=== PATIENT | male | born 1935 | race Caucasian/White ===

== ENCOUNTER → 2017-07-16 | Outpatient (CLI) | payer OTHER ==
[~2017-07-16] MED LIST: ASPEC325 PO; ATOR-22 PO; BRIM0.15 OP; CLB200 PO; HYDR-5688 PO; LATA0.009 OPB; LOSA1TAB38 PO; MULTTAB58 PO; OXYSR10 PEG; SENN-65 PO; VERA240C2 PO
--- NOTE | 2017-07-16 11:31 | DIAGNOSTIC IMAGING REPORT ---
ABDOMINAL AORTIC ULTRASOUND CLINICAL HISTORY: Health Maintenance. Screening for abdominal aortic aneurysm. COMPARISON STUDY: No previous studies for comparison. FINDINGS: The caliber of the abdominal aorta and proximal bilateral common iliac arteries is normal. The proximal abdominal aorta measures 2.2 cm. The mid abdominal aorta measures 2.4 cm and the distal abdominal aorta measures 2.1 cm. There is mild to moderate atherosclerotic plaque. IMPRESSION: Normal caliber abdominal aorta. Electronically signed by: Willy Batista M.D. 07/16/2017 11:30 AM Dictated Date/Time: 07/16/2017 11:28 AM
== END | disposition home or self-care (01) ==
LOC: C.ULTRBC 09:38
PROVIDERS: ATTEND Internal Medicine Geriatric Medicine
DX: Z00.00 Encounter for general adult medical examination without abnormal findings (principal)

== ENCOUNTER 2024-10-19 17:06 | Observation (INO) ==
--- NOTE | 2024-10-19 19:32 | History & Physical Report ---
Date of Service October 19, 2024 Assessment & Plan (1) Ureterolithiasis: Plan: 9mm obstructing left with hydro at UPJ with associated UTI Keep NPO and Consult urology for stent insertion Discussed case with Dr Goldstein at time of admission (2) UTI (urinary tract infection): Plan: IV ceftriaxone given in the emergency room Follow-up urine culture at [facility] (3) Benign enlargement of prostate: Plan: Continue tamsulosin 0.4mg PO BID, monitor for urine retention (4) GERD (gastroesophageal reflux disease): Plan: Start IV famotidine (5) Hydronephrosis with obstructing calculus: Plan HTN - continue losartan and verapamil Hyperlipemia - continue rosuvastatin VTE Prophylaxis - low risk Diet - NPO pending stent placement Disposition - admit to med/surg Admission and Anticipated Discharge Date Admission Date: October 19, 2024 History of Present Illness Chief Complaint: Left back pain Primary Care Provider: Katey Nguyễn DO Frank Egan is an 89 year old male who presents as a direct admission from [facility] with left back pain. He reports 2 to 3 days of left- sided back pain which was resolved with Toradol given in the emergency room. On arrival to the ER severity 06/16, currently he is pain-free. He also reports blood in his urine 2 weeks ago which cleared up after 2 to 3 days. He last ate and drank around 9 AM. No prior heart attacks or strokes. No nausea, vomiting, diarrhea, dysuria, urinary frequency, current change in color or smell of urine. No fever or chills. He also notes indigestion and nausea for the last 2 days. No vomiting or diarrhea. CT abdomen pelvis in the emergency room showed a 9 mm obstructing stone at UPJ causing hydronephrosis. His case was discussed with the hospitalist and urology at [facility] and he was accepted for transfer due to no urology coverage at outside facility. Allergies Allergy/AdvReac Type Severity Reaction Status Date / Time Iodinated Contrast Media Allergy Unknown PT PASSED Verified 01/30/24 10:59 OUT Percocet TABS Allergy Uncoded 01/30/24 10:59 Home Medications Medication Instructions Recorded Confirmed Type cholecalciferol (vitamin D3) 25 1,000 units PO DAILY #90 caps 04/29/19 10/19/24 Rx mcg (1,000 unit) capsule latanoprost 0.005 % eye drops 1 drops ophthalmic (eye) QPM #2.5 04/29/19 10/19/24 Rx mL dorzolamide 22.3 mg-timolol 6.8 1 drp OPB BID 07/13/21 10/19/24 History mg/mL eye drops losartan 100 mg tablet 100 mg PO DAILY #90 tabs 07/03/24 10/19/24 Rx tamsulosin 0.4 mg capsule 0.4 mg PO BID #60 caps 08/11/24 10/19/24 Rx rosuvastatin 10 mg tablet (Crestor) 10 mg PO HS 10/19/24 10/19/24 History verapamil 120 mg 24 hr 120 mg PO HS 10/19/24 10/19/24 History capsule,extended release Past Med/Surg History Problem List UTI (urinary tract infection) Hydronephrosis with obstructing calculus Ureterolithiasis Chronic rhinitis GERD (gastroesophageal reflux disease) History of SCC (squamous cell carcinoma) of skin History of basal cell carcinoma Hearing loss Actinic keratosis Cluster headache (Chronic) Pulmonary emphysema Osteopenia (Acute) Hypertension Glaucoma (Acute) Dyslipidemia Chronic osteoarthritis (Acute) Benign enlargement of prostate Aortic calcification (Acute) Medical History Abscess of pubic region Surgical History H/O cataract extraction (2015) bl eyes History of total knee arthroplasty (2014) Left, Dr. Roche History of shoulder surgery History of knee surgery knee repair History of hernia repair Family History Father , age 71 Chronic kidney disease Patient's father is Sister Lung cancer Other Diabetes Denies family history of Ovarian cancer Prostate cancer Myocardial infarction Breast cancer Colorectal cancer Social History Smoking Status: Current every day smoker Tobacco Type: Cigarettes Age Started Using Tobacco: 19; packs per day: 0.75; Second Hand Exposure: No; Do You Dip or Chew Tobacco: No; Hx Alcohol Use: Yes Alcohol Intake Frequency: 2-4 x/Month Hx Substance Use: No Preferred Language: Lao Communication Ability: Effective Visual Impairment: Limited Hearing Ability: Use of Hearing Aid Fish Dressing Machine Feeder Required: No Beliefs That Will Affect Care: None marital status: Current Living Situation: Spouse current occupational status: retired How many Children do You have: 2 Other Information That Helps Us Care for You: No Feels Safe at Home: Yes Safety Concerns: Feels Safe At This Time Childhood Exposure to Second-Hand Smoke: Yes Diet: regular Diet Comment: regular caffeine: Yes (coffee) during the past year weight has: remained stable Dental Care, Regularly: No Physical Activity Frequency: Daily Seatbelt Use: always Sunscreen Use: No Assistive Devices: Glasses and Hearing Aid - Bilateral Review of Systems Review of Systems: All systems reviewed & are unremarkable except as noted in HPI & below Physical Exam Constitutional: WD/WN, vitals as above Respiratory: normal respiratory effort, lungs clear to auscultation Cardiovascular: RRR, no murmur, no edema Gastrointestinal (Abdomen): normal bowel sounds, soft, nontender, no hepatosplenomegaly Neurologic: moves all extremities and awake; not confused Psychiatric: A+Ox3, euthymic affect Genitourinary: + CVA tenderness (Left) Results & Data Results & Data Vital Signs (Past 12 Hours) Vital Signs Temp Pulse Resp BP Pulse Ox O2 Del Method 10/19/24 18:57 36.6 C 62 18 149/76 H 97 Room Air Laboratory Results [facility] emergency room October 19, 2024 14:22 Glucose 95 BUN 18 Creatinine 1.17 Total protein 6.5 Albumin 4 Globulin 2.5 A/G ratio 1.6 Calcium 9.1 Total bili 1.2 Sodium 140 Potassium 3.7 Chloride 106 CO2 28 AGAP 9.7 ALP 83 AST 31 ALT 13 Lipase 25 Lactate 2.1 WBC 12.08 Hemoglobin 14.8 MCV 97.6 Platelets 147 Absolute neutrophil count 9.7 Urinalysis Color maryjane Clarity cloudy Glucose negative Bili negative Ketones negative Specific gravity 1.020 Blood 3+ pH 6.0 Protein 1+ Urobilinogen 1 Nitrites negative Leukocyte esterase 2+ RBC greater than 50 WBC 15-20 Epithelial 0-6 Bacteria trace Fine granular casts 0-2 RBC casts 0-[address] abdomen pelvis without IV contrast 10/19/2024 14:08 Impression: 1. Left hydronephrosis due to a 9 mm calculus obstructing the left UPJ 2. Small right renal calculus and multiple bladder calculi 3. Small hepatic and right renal cyst 4. Diverticulosis without evidence of diverticulitis 5. Enlarged prostate. Correlation with PSA levels may be useful CXR Impression: 1. No acute cardiopulmonary abnormality Medications Administered ER medications given: Ceftriaxone 2 g IV Normal saline 1848 mL bolus Toradol 15 mg IV Code Status & VTE Plan Code Status Full VTE Prophylaxis Plan VTE Prophylaxis will be ordered: Yes PG Care Time/CCT Total # of Minutes Spent Total Time Spent with Patient: Total time spent is greater than 50% in coordination of care (as documented) at patient's floor/unit and/or counseling patient: Coding Level of Care Code 46168 INT INP/OBS CARE 375MIN Diagnoses Ureterolithiasis N20.1 UTI (urinary tract infection) N39.0 Benign enlargement of prostate N40.0 GERD (gastroesophageal reflux disease) K21.9 Hydronephrosis with obstructing calculus N13.2
[2024-10-19] MEDS ORDERED: ONDANSETRON INJ 2 MG/ML 2 ML VIAL ONE (19:56)
[2024-10-19] MEDS ORDERED: PROPOFOL IV EMULSION 10 MG/ML 20 ML VIAL IV ONE (19:56)
[2024-10-19] MEDS ORDERED: LIDOCAINE 2% 2 ML VIAL/AMP(20MG/ML) INFIL ONE (19:56)
[2024-10-19] MEDS ORDERED: fentaNYL citrate PF 100 MCG/2 ML VIAL ONE (19:56)
--- NOTE | 2024-10-19 20:03 | Urology Consultation ---
Date of Consultation October 19, 2024 Assessment & Plan (1) Hydronephrosis with obstructing calculus: (2) Ureterolithiasis: (3) UTI (urinary tract infection): (4) History of SCC (squamous cell carcinoma) of skin: (5) History of basal cell carcinoma: (6) Chronic osteoarthritis: (7) Benign enlargement of prostate: (8) Aortic calcification: (9) Osteopenia: (10) Pulmonary emphysema: Plan New patient with obstructing stone. Large obstructing stone in the left UPJ causing considerable hydronephrosis and perinephric stranding. Patient independently assessed, examined, interviewed, and evaluated. Patient's vitals and labs were all reviewed. Pertinent values in the HPI and plan section. Blood pressure 149/76. Pulse 62. Respirations 18. Temp 36.6. Oxygen saturation 97% on room air. Imaging was reviewed interpreted by myself. Patient with large obstructing stone in the UPJ/proximal ureter causing obstructive issues on the left side with hydronephrosis and perinephric stranding. Read was completed at [facility] and was not available at time of assessment. Vitals were reviewed. White count was 12.08. Creatinine 1.17. Lactic acid was mildly elevated 2.1. Discussed findings extensively with patient and family. Reviewed with transfer team as well as consulting physician. Patient's complicated medical and surgical history was reviewed and summarized above. Patient's surgical, medical, social, and family history were all reviewed with pertinent values as above. Patient has never had stone before. Discussed patient's current diagnosis as well as concerns and issues. Reviewed different options moving forward. Discussed potential risks and benefits as well as possible options and concerns. Reviewed potential surgical options and interventions. Discussed potential issues and concerns related to intervention. Risk and benefits were discussed extensively with patient and any available family. Discussed potential risks related to anesthesia. Discussed risks of bleeding infection and injury. Suspicion for infection with possible development of ascending infection due to large stone and obstruction. Discussed possible risks and development of sepsis with large obstructing stone and infection. Cultures are pending. [facility] Patient had been given a dose of Rocephin at the [facility] Discussed options for conservative measure and maximum expulsion medical therapy and symptom controlled. Discussed ESWL. Discussed Ureteroscopy with extraction and/or laser lithotripsy. Risks and benefits were discussed. Stone free rates were also discussed as well as possibility of multiple procedures. Ureteral stents were discussed as well as post-operative issues and pain management. All questions were answered. Risks and benefits discussed at length for procedure. These include bleeding, infection, injury to surrounding tissues or organs, and risks associated with anesthesia. Patient states understanding and agrees to proceed. Will sign consent and proceed. Plan for cystoscopy with possible left stent placement. History of Present Illness Attending Physician: Naldo Baker MD History of Present Illness New consultation for patient with stone, discomfort, obstruction, and ill feelings. Patient presented to [facility]. Patient developed sudden onset of pain into flank going down and radiating into groin and back in waves comes and goes. Can be severe at times. Found to have positive urine concerning for possible infection. Had undergone CT examination at [facility] found to have large obstructing stone in the UPJ causing hydronephrosis and perinephric stranding. Discussed and reviewed patient's family history for any history of stone disease. Also, discussed patient's medical surgery history especially related to any history of urinary issues or stone disease. Patient was admitted and is undergoing observation. Had been given a dose of Rocephin at [facility]. Was transferred for possible surgical management. Allergies Allergy/AdvReac Type Severity Reaction Status Date / Time Iodinated Contrast Media Allergy Unknown PT PASSED Verified 01/30/24 10:59 OUT Percocet TABS Allergy Uncoded 01/30/24 10:59 Home Medications Medication Instructions Recorded Confirmed Type cholecalciferol (vitamin D3) 25 1,000 units PO DAILY #90 caps 04/29/19 10/19/24 Rx mcg (1,000 unit) capsule latanoprost 0.005 % eye drops 1 drops ophthalmic (eye) QPM #2.5 04/29/19 10/19/24 Rx mL dorzolamide 22.3 mg-timolol 6.8 1 drp OPB BID 07/13/21 10/19/24 History mg/mL eye drops losartan 100 mg tablet 100 mg PO DAILY #90 tabs 07/03/24 10/19/24 Rx tamsulosin 0.4 mg capsule 0.4 mg PO BID #60 caps 08/11/24 10/19/24 Rx rosuvastatin 10 mg tablet (Crestor) 10 mg PO HS 01/13/25 01/13/25 History verapamil 120 mg 24 hr 120 mg PO HS 10/19/24 10/19/24 History capsule,extended release Patient History Medical History Abscess of pubic region Surgical History H/O cataract extraction (2016) bl eyes History of total knee arthroplasty (2014) Left, Dr. Roche History of shoulder surgery History of knee surgery knee repair History of hernia repair Family History Father , age 71 Chronic kidney disease Patient's father is Sister Lung cancer Other Diabetes Denies family history of Ovarian cancer Prostate cancer Myocardial infarction Breast cancer Colorectal cancer Social History Smoking Status: Current every day smoker Tobacco Type: Cigarettes Age Started Using Tobacco: 19; packs per day: 0.75; Second Hand Exposure: No; Do You Dip or Chew Tobacco: No; Hx Alcohol Use: Yes Alcohol Intake Frequency: 2-4 x/Month Hx Substance Use: No Preferred Language: Vietnamese Communication Ability: Effective Visual Impairment: Limited Hearing Ability: Use of Hearing Aid Sap Pp Consultant Required: No Beliefs That Will Affect Care: None marital status: Current Living Situation: Spouse current occupational status: retired How many Children do You have: 2 Feels Safe at Home: Yes Childhood Exposure to Second-Hand Smoke: Yes Diet: regular Diet Comment: regular caffeine: Yes (coffee) during the past year weight has: remained stable Dental Care, Regularly: No Physical Activity Frequency: Daily Seatbelt Use: always Sunscreen Use: No Review of Systems Review of Systems: All systems reviewed & are unremarkable except as noted in HPI & below Physical Exam Physical Exam: General: Alert and oriented x 3 in no acute distress. Advanced age HEENT: Normocephalic Atraumatic. Inspection normal. Cranial Nerves 2-12 Grossly intact. Nares are clear. Neck is supple. Normal inspection of face. Normal inspection of neck. Neurologic: No deficits on inspection. Baseline for motor function and sensory. Psychologic: Normal affect. Respiratory: Nonlabored. No use of accessory muscles. No tachypnea or dyspnea. Cardiovascular: No tachycardia Skin: [place] and Dry. No rashes or visible lesions. Extremities: Moving without issues. No motor deficits on inspection Lymphatics: No edema Abdomen: Soft Non-distended. No rebound or guarding. Results & Data Vital Signs (Past 12 Hours) Vital Signs Temp Pulse Resp BP Pulse Ox O2 Del Method 10/19/24 18:57 36.6 C 62 18 149/76 H 97 Room Air PG Care Time/CCT Total # of Minutes Spent Total Time Spent with Patient: Total time spent is greater than 50% in coordination of care (as documented) at patient's floor/unit and/or counseling patient: Coding Level of Care Code 47259 INT INP/OBS CARE 3/75MIN Diagnoses Hydronephrosis with obstructing calculus N13.2 Ureterolithiasis N20.1 UTI (urinary tract infection) N39.0 History of SCC (squamous cell carcinoma) of skin Z85.828 History of basal cell carcinoma Z85.828 Chronic osteoarthritis M19.90 Benign enlargement of prostate N40.0 Aortic calcification I70.0 Osteopenia M85.80 Pulmonary emphysema J43.9
--- NOTE | 2024-10-19 20:08 | Anesthesiology Consultation ---
Date of Service October 19, 2024 Assessment & Plan Chart Review Chart Review: Acceptable Risk for Surgery Consults Requested none ASA [id number] Proposed Anesthesia Anesthesia Type: MAC History Surgery Operation Date: 10/19/24 19:25 Proposed Procedures p Cysto left Ureteral Stent Insertion - Rodrigo Goldstein DO Allergies Allergy/AdvReac Type Severity Reaction Status Date / Time Iodinated Contrast Media Allergy Unknown PT PASSED Verified 01/30/24 10:59 OUT Percocet TABS Allergy Uncoded 01/30/24 10:59 Medications Home Medications Medication Instructions Recorded Confirmed Last Taken cholecalciferol (vitamin D3) 25 1,000 units PO DAILY #90 caps 04/29/19 10/19/24 Unknown mcg (1,000 unit) capsule latanoprost 0.005 % eye drops 1 drops ophthalmic (eye) QPM #2.5 04/29/19 10/19/24 1 Day Ago mL ~10/18/24 dorzolamide 22.3 mg-timolol 6.8 1 drp OPB BID 07/13/21 10/19/24 1 Day Ago mg/mL eye drops ~10/18/24 losartan 100 mg tablet 100 mg PO DAILY #90 tabs 07/03/24 10/19/24 10/19/24 tamsulosin 0.4 mg capsule 0.4 mg PO BID #60 caps 08/11/24 10/19/24 1 Day Ago ~10/18/24 rosuvastatin 10 mg tablet (Crestor) 10 mg PO HS 10/19/24 10/19/24 1 Day Ago ~10/18/24 verapamil 120 mg 24 hr 120 mg PO HS 10/19/24 10/19/24 1 Day Ago capsule,extended release ~10/18/24 Past Medical History Medical History Abscess of pubic region Past Family History Family History Father , age 71 Chronic kidney disease Patient's father is Sister Lung cancer Other Diabetes Denies family history of Ovarian cancer Prostate cancer Myocardial infarction Breast cancer Colorectal cancer Past Surgical History Surgical History H/O cataract extraction (2015) bl eyes History of total knee arthroplasty (2014) Left, Dr. Roche History of shoulder surgery History of knee surgery knee repair History of hernia repair Social History Smoking Status: Current every day smoker tobacco type: cigarettes Do You Dip or Chew Tobacco: No Hx Alcohol Use: Yes Hx Substance Use: No Physical Exam Vital Signs Last Vital Signs Temp 36.6 C 10/19/24 18:57 Pulse 62 10/19/24 18:57 Resp 18 10/19/24 18:57 BP 149/76 H 10/19/24 18:57 Pulse Ox 97 10/19/24 18:57 O2 Del Method Room Air 10/19/24 18:57
[2024-10-19] MEDS: CIPROFLOXACIN 400MG / 200ML D5W IV ONE ×2 (20:23→20:32)
[2024-10-19] MEDS: DIATRIZOATE MEGLUMINE 30% 100ML VIAL INSTIL ONE (20:49)
--- NOTE | 2024-10-19 20:53 | Operative Report ---
PG Post Operative Report Pre & Post Diagnosis Operation Date: 10/19/24 19:25 Pre-Op Diagnosis: Hydronephrosis with obstructing calculus, Ureterolithiasis, Urinary Tract Infection Post-Op Diagnosis: Hydronephrosis with obstructing calculus, Ureterolithiasis, Urinary Tract In fection I identified the patient and participated in the time-out.: Yes Procedure Operation Date: 10/19/24 19:25 Actual Procedures Cystoscopy with Left Retrograde Pyelogram, aspiration of urine left kidney, and Left Ureteral Stent Insertion Extraction of Bladder Stones - Rodrigo Goldstein DO Surgeon Rodrigo Goldstein, II, DO Carpet Tile Layer None Estimated Blood Loss 1 Findings Consistent with Post-Op Diagnosis Stent placed in good position. Large obstructing stone of the UPJ Dark urine aspirated from left Renal pelvis. Innumerable small bladder stones less than 1 cm in size. Very large median lobe with large prostatic varicosity and significant prostate enlargement Specimens Urine Left Kidney Bladder stones Drains 6 Fr x 26 cm stent left Anesthesia Type MAC Complications none Disposition Disposition: Recovery Room Indications Patient with obstruction. Risks and benefits discussed at length. Description of Procedure Patient was consented and brought back to the operating room. Patient was placed under anesthesia in the supine position and moved to the dorsal lithotomy position. Patient was prepped and draped in the regular sterile fashion. A time out was completed. A 30degree Cystoscope was placed into the bladder and the entire bladder was examined. The UO's were identified. The prostate was found to be severely enlarged with large varicosities. There were innumerable bladder stones in the base of the bladder. The stones were all less than 1 cm in size. The stones were able to be irrigated and cleared. A large amount of stones were collected. A sample was sent for analysis. The UO was cannulized with a catheter which was advanced to the renal pelvis. Urine was aspirated from the renal pelvis after the 5 Austrian open-ended catheter bypassed the large obstructing stone that was seen clearly on the fluoroscopy. The urine was sent for culture. The catheter was then positioned at the UPJ and a retrograde pyelogram was completed. A wire was then placed. With the wire in place, a 6 Fr Double J stent was placed. It was confirmed with fluoroscopy. With the stent in place, the bladder was emptied. A minor amount of bleeding was noted coming from the large varicosities of the prostate with the large median lobe. The scope was removed. The patient was cleaned, aroused from anesthesia, and transferred to the pacu in stable condition having tolerated the procedure well with no complications. I was present and participated in all aspects of the procedure. The patient will be monitored in the PACU until transferred. Plan to monitor overnight. Will need to be set up for treatment of large UPJ stone after adequate antibiotics I attest to the content of the Intraoperative Record and any orders documented therein. Any exceptions are noted below.
--- NOTE | 2024-10-19 21:21 | Anesthesiology Progress Note ---
Date of Service October 19, 2024 Anesthesia Post Procedure Vital Signs Vital Signs: Temp Pulse Pulse Resp BP Pulse Ox O2 Del Method 10/19/24 21:15 36.4 C L 55 L 20 137/73 95 Room Air 10/19/24 21:05 53 L 14 101/46 L 94 Room Air 10/19/24 20:56 36.5 C 56 L 12 120/62 98 Room Air 10/19/24 19:20 Room Air 10/19/24 18:57 36.6 C 62 18 149/76 H 97 Room Air Transfer of Care Handoff Completed per policy Notes Mental Status: alert / awake / arousable and participated in evaluation Patient Amnestic to Procedure: Yes Nausea / Vomiting: adequately controlled Pain: adequately controlled Airway Patency, RR, SpO2: stable & adequate BP & HR: stable & adequate Hydration State: stable & adequate Anesthetic Complications: no major complications apparent
[2024-10-19] MEDS: ROSUVASTATIN CALCIUM 10 MG TAB PO SCH (21:37)
[2024-10-19] MEDS: TAMSULOSIN HCL 0.4 MG CAP PO SCH (21:37)
[2024-10-19] MEDS: LATANOPROST 0.005% OP SOLN 2.5 ML BTL OP SCH (21:37)
[2024-10-19] MEDS: VERAPAMIL HCL 120 MG TABCR PO SCH (21:37)
[2024-10-19] MEDS: DORZOLAMIDE/TIMOLOL 22.3/6.8MG/ML 10 ML BTL OPB SCH (21:38)
[2024-10-19] MEDS: FAMOTIDINE 20MG IV PUSH 20 MG/5 ML SYR IV STA (22:07)
[2024-10-20 07:11] VITALS: BP 166/70; PULSE 72; RESP 16; TEMP 98.1; O2SAT 91
--- NOTE | 2024-10-20 07:14 | Fluoroscopy Report ---
FL retrograde includes kub CLINICAL HISTORY: CYSTO, RETRO, STENTleft-sided cystourethrogram was done placement COMPARISON STUDY: None FLUOROSCOPY TIME: 67.2 seconds FLUOROSCOPY IMAGES: 3 EXPOSURE DOSE: 9.5 mGy FINDINGS: Status post placement of left ureteral stent which appears to be in satisfactory positionin g. Left-sided hydronephrosis with calyceal blunting noted. IMPRESSION: Fluoroscopic assistance as above. ACT 112: Negative or not required by law. Electronically signed by: Cory Dennis M.D. 10/20/2024 7:12 AM
[2024-10-20] MEDS: LOSARTAN POTASSIUM 50 MG TAB PO SCH (07:32)
[2024-10-20 08:01] LABS: Basophils # (auto) 0.03 K/uL (0.00-0.20); Basophils % (auto) 0.4 %; Eosinophils # (auto) 0.05 K/uL (0.00-0.50); Eosinophils % (auto) 0.6 %; Hematocrit (blood only) 37.8 % (42.0-52.0); Hemoglobin 12.8 g/dl (14.0-18.0); Immature Granulocytes # (auto) 0.03 K/uL (0.01-0.20); Immature Granulocytes % (auto) 0.4 %; Lymphocytes # (auto) 1.12 K/uL (1.20-3.40); Lymphocytes % (auto) 13.8 %; Mean Corpuscular Hemoglobin 32.9 pg (25.0-34.0); Mean Corpuscular Hgb Conc 33.9 g/dL (32.0-36.0); Mean Corpuscular Volume 97.2 fL (80.0-100.0); Mean Platelet Volume 10.4 fL (9.4-12.4); Monocytes % (auto) 9.8 %; Platelet Count 116 K/uL (130-400); RDW Coefficient of Variation 14.1 % (11.5-14.5); RDW Standard Deviation 50.7 fL (36.4-46.3); Red Blood Count 3.89 M/uL (4.70-6.10); White Blood Count 8.13 K/ul (4.8-10.8)
[2024-10-20 08:12] LABS: BUN Creatinine Ratio 28.1 (10-20); Calcium 8.4 mg/dl (8.6-10.3); Potassium 4.2 mmol/L (3.5-5.1)
--- NOTE | 2024-10-20 09:17 | Urology Progress Note ---
Date of Service October 20, 2024 Assessment & Plan (1) Hydronephrosis with obstructing calculus: Plan: 89-year-old male transferred from [facility] for evaluation of an obstructing 9 mm left proximal stone and concern for UTI. - Pt POD#1 s/p Cystoscopy with Left Retrograde Pyelogram, aspiration of urine left kidney, and Left Ureteral Stent Insertion, Extraction of Bladder Stones - Afebrile, hemodynamically stable - Lab work reviewed - creatinine 0.96, WBC 8.13 - Urine culture obtained at outside facility - Kidney aspirate urine culture pending - Continue broad-spectrum antibiotics, follow culture and narrow per sensitivity data when available - Tolerating left ureteral stent with minimal bother - Okay to d/c from perspective when medically stable - Recommend d/c with course of appropriate PO antibiotics, Tamsulosin, prn Pyridium and prn pain medication for stent management - Expected clinical course reviewed, all questions answered - Will arrange outpatient follow-up with our service to set up definitive stone treatment - will sign off, please contact our service with any additional questions or concerns (2) UTI (urinary tract infection): Admission and Anticipated Discharge Date Admission Date: October 19, 2024 Subjective Patient seen and examined at bedside this morning. He is awake and ambulating from the bathroom. No acute issues overnight. He is voiding spontaneously. Notes hematuria postprocedure. Denies nausea, vomiting, fever or chills. Review of Systems Constitutional: as per Subjective / HPI Gastrointestinal: as per Subjective / HPI Genitourinary: + as per Subjective / HPI Physical Exam Constitutional: no acute distress Respiratory: no respiratory distress and no labored breathing Gastrointestinal (Abdomen): Inspection/Auscultation: abdomen normal to inspection Musculoskeletal: Head/Neck/Chest: normocephalic Neurologic: moves all extremities and awake Psychiatric: Orientation: alert and oriented x 3 Results & Data Vital Signs (Past 12 Hours) Vital Signs Temp Pulse Resp BP Pulse Ox O2 Del Method 10/20/24 07:10 36.7 C 72 16 166/70 H 91 Room Air 10/20/24 04:56 36.6 C 56 L 18 132/78 94 Room Air 10/20/24 00:48 36.4 C L 56 L 18 123/74 97 Room Air 10/19/24 23:48 36.5 C 61 16 129/76 96 Room Air 10/19/24 22:30 36.5 C 58 L 18 154/73 H 92 Room Air 10/19/24 22:05 36.5 C 57 L 16 144/68 H 93 Room Air 10/19/24 21:34 36.4 C L 58 L 16 136/78 93 Room Air PG Care Time/CCT Total # of Minutes Spent Total Time Spent with Patient: Total time spent is greater than 50% in coordination of care (as documented) at patient's floor/unit and/or counseling patient: Coding Level of Care Code 85813 SUB INP/OBS CARE 10/31MIN Diagnoses Hydronephrosis with obstructing calculus N13.2 UTI (urinary tract infection) N39.0
[2024-10-20] MEDS: cefTRIAXone SODIUM 2,000 MG/50 ML BAG IV SCH (13:38)
--- NOTE | 2024-10-20 15:03 | Communication Note ---
Date of Service: October 20, 2024 By CMS guidelines, a determination that the admission or continued stay is not medically necessary has been made by a member of the UR committee and john ferraro for this hospital stay, therefore a Code 44 will be completed and the Inpatient admission will be changed to outpatient.
--- NOTE | 2024-10-20 15:06 | Communication Note ---
Date of Service: October 20, 2024 By CMS guidelines, a determination that the admission or continued stay is not medically necessary has been made by a member of the UR committee and a ph ysician for this hospital stay, therefore a Code 44 will be completed and the Inpatient admission will be changed to outpatient.
--- NOTE | 2024-10-20 15:19 | Discharge Summary ---
Discharge Summary Date of Service October 20, 2024 Principal Dx & Hospital Course #1 = Principal Diagnosis (1) Ureterolithiasis: 9mm obstructing left with hydro at [facility] with associated UTI. underwent stent placement with Dr. Goldstein on 10/19. Tolerating stent without issue Urine culture at [facility] is negative at 24 hours, urine from kidney during stent procedure had a negative Gram stain with no growth to date. Discussed with patient and sonBunny, patient has received 2 doses of ceftriaxone and will be discharged on a course of cefpodoxime. I will review the urine culture tomorrow 10/21 at [facility] and if antibiotics need to be changed I will notify patient and his son. Patient and son are both aware that there is a slight but unlikely chance that he would need IV antibiotics in which they understand that he would probably have to return to the hospital. continue Flomax. Tylenol for pain. As needed Pyridium prescribed. (2) UTI (urinary tract infection): Cefpodoxime at discharge as above. (3) Benign enlargement of prostate: Continue tamsulosin 0.4mg PO BID (4) GERD (gastroesophageal reflux disease): (5) Hydronephrosis with obstructing calculus: Plan Dispo: Discharge to home, will need urology follow-up for stent treatment SonBunny updated by phone Notes For Next Care Provider urine culture from [facility] still pending however no growth at 24 hours platelets low at 116, no prior labs in system for comparison. If no prior data could consider repeat. No active bleeding currently Medication Changes From Visit Pyridium as needed Cefpodoxime twice daily x 8 days Admission HPI Per Admitting Provider Frank Egan is an 89 year old male who presents as a direct admission from [facility] with left back pain. He reports 2 to 3 days of left- sided back pain which was resolved with Toradol given in the emergency room. On arrival to the ER severity 06/16, currently he is pain-free. He also reports blood in his urine 2 weeks ago which cleared up after 2 to 3 days. He last ate and drank around 9 AM. No prior heart attacks or strokes. No nausea, vomiting, diarrhea, dysuria, urinary frequency, current change in color or smell of urine. No fever or chills. He also notes indigestion and nausea for the last 2 days. No vomiting or diarrhea. CT abdomen pelvis in the emergency room showed a 9 mm obstructing stone at [facility] causing hydronephrosis. His case was discussed with the hospitalist and urology at [facility] and he was accepted for transfer due to no urology coverage at outside facility. Discharge Exam General: NAD, VS as above, ambulates independently in the room, very pleasant and appears well Resp: normal respiratory effort, lungs clear to auscultation CV: RRR, no murmur, Abd: normal bowel sounds, non tender, no hepatosplenomegaly Extremities: Moves all extremities, no edema Neuro: A&O x3, Discharge Plan Discharge Items Patient Disposition: Home - Self-Care Reason For Visit: OBSTRUCTIVE URETEROLITHIASIS/UTI Discharge Diagnosis: Kidney stone Activity: Resume your previous activity Driving/Machine Use: No limitations Weightbearing: Full weightbearing Non-emergency contact: Primary Care Provider and Urologist Call non-emergency contact if: you have any medication questions, your pain is not controlled, your pain is worsening and your temperature is above 101 Follow-up/Referrals: Katey Nguyễn DO [Primary Care Provider] - 10/29/24 9:20 am Rodrigo Goldstein DO [Physician] - (follow up for stone treatment ) Diet: Heart Healthy Addtl Attending Provider Instructions: Mr. Egan, You were hospitalized after flank pain which was found to be from a kidney stone causing a pack up of urine in your kidney. You underwent stent placement with Dr. Goldstein in the OR on 10/20. The stent helps the urine to continue to pass through but does not help the stone. You will need to follow up with the urology office for stone treatment. Their number is listed above if you do not hear from them by Saturday please give their office a call. There were also concerns for infection based on the appearance of your urine. Thankfully your cultures at [facility] and within our system are so far negative. You will be discharged on oral cefpodoxime. Take this twice a day with food, first dose AM 10/21. There is a chance that this antibiotic will have to be changed, if so I will give you a call tomorrow. Recommendations: - take full course of antibiotics - continue taking Flomax (tamsulosin as prescribed). - Pyridium prescribed as needed for pain with urination - take Tylenol for any continued back pain - urology follow up for stone treatment Activity: You can do normal everyday activities as your body allows. Take rest breaks if you feel tired. Do not overexert. Stop activity if you have pain, shortness of breath or feel dizzy. Follow-up appointments: Make an appointment with your primary care physician within one week of d ischarge. A copy of this summary will be sent to them. Every time you see your primary care physician, or any other doctor, bring your medication list, and a list of questions. CONTACT YOUR PRIMARY CARE PROVIDER if you experience any of the following: Shortness of breath or difficulty breathing Fevers or chills Feeling tired with normal activity or experiencing dizziness or fainting Difficulty following your treatment plan, or difficulty taking medications Call urology if you experience: - difficulty or inability to urinate - worsening flank pain not controlled with medication CALL 911 OR GO TO THE EMERGENCY DEPARTMENT if you experience any of the following: Severe abdominal pain or nausea/vomiting Severe chest pain, or chest pain that radiates (moves) to your jaw or arm Sudden, severe shortness of breath or difficulty breathing Thank you for allowing us to participate in your care. Betzy Bee PA-C Pending Studies at Discharge: Yes (kidney urine specimen ) Stand-Alone Forms: My [facility] [place], Smoking Cessation Medications and DC Order Prescriptions: New cefpodoxime 200 mg tablet 200 mg PO BID Qty: 16 0RF Rx Instructions: must administer with a meal/food phenazopyridine [Pyridium] 100 mg tablet 100 mg PO TID PRN (Reason: pain with urination ) Qty: 6 0RF Continued losartan 100 mg tablet 100 mg PO DAILY Qty: 90 1RF tamsulosin 0.4 mg capsule 0.4 mg PO BID Qty: 60 5RF cholecalciferol (vitamin D3) 1,000 unit capsule 1,000 units PO DAILY Qty: 90 0RF latanoprost 0.005 % drops 1 drops OP QPM Qty: 2.5 2RF dorzolamide-timolol 22.3-6.8 mg/mL drops 1 drp OPB BID rosuvastatin [Crestor] 10 mg tablet 10 mg PO HS verapamil 120 mg capsule,ext rel. pellets 24 hr 120 mg PO HS Discharge Orders: Discharge Order (Routine); Ordered 10/20/24 Ordered By: Betzy Bee Admission Data Admit Date/Time: 10/19/24 18:58 Attending Provider: Cassandra Singh Admit Provider: Naldo Baker Primary Care Provider: Katey Nguyễn Other Providers: Rodrigo Goldstein Other Interventions: Discharge Summary Assessment (RN) Last Done: 10/20/24 15:10 Hospital Stay Data Consultations 10/19/24 18:59 Consult Urology Stat Procedures Performed Operation Date: 10/19/24 19:25 Actual Procedures p Cystoscopy, Retrograde Pyelogram, Left Ureteral Stent Insertion, Extraction of Bladder Stones(Left) - Rodrigo Goldstein, Diagnostic Imagining Performed Retrograde Pyelogram 10/19/24 19:35 FL retrograde includes kub CLINICAL HISTORY: CYSTO, RETRO, STENTleft-sided cystourethrogram was done placement COMPARISON STUDY: None FLUOROSCOPY TIME: 67.2 seconds FLUOROSCOPY IMAGES: 3 EXPOSURE DOSE: 9.5 mGy FINDINGS: Status post placement of left ureteral stent which appears to be in satisfactory positioning. Left-sided hydronephrosis with calyceal blunting noted. IMPRESSION: Fluoroscopic assistance as above. ACT 112: Negative or not required by law. Electronically signed by: Cory Dennis M.D. 10/20/2024 7:12 AM Pending Results Patient Have Any Pending Studies at Discharge: Yes (kidney urine specimen ) Discharge Instructions Given to Patient (Per Discharging Provider) Mr. Egan, You were hospitalized after flank pain which was found to be from a kidney stone causing a pack up of urine in your kidney. You underwent stent placement with Dr. Goldstein in the OR on 10/20. The stent helps the urine to continue to pass through but does not help the stone. You will need to follow up with the urology office for stone treatment. Their number is listed above if you do not hear from them by Saturday please give their office a call. There were also concerns for infection based on the appearance of your urine. Thankfully your cultures at [facility] and within our system are so far negative. You will be discharged on oral cefpodoxime. Take this twice a day with food, first dose AM 10/21. There is a chance that this antibiotic will have to be changed, if so I will give you a call tomorrow. Recommendations: - take full course of antibiotics - continue taking Flomax (tamsulosin as prescribed). - Pyridium prescribed as needed for pain with urination - take Tylenol for any continued back pain - urology follow up for stone treatment Activity: You can do normal everyday activities as your body allows. Take rest breaks if you feel tired. Do not overexert. Stop activity if you have pain, shortness of breath or feel dizzy. Follow-up appointments: Make an appointment with your primary care physician within one week of discharge. A copy of this summary will be sent to them. Every time you see your primary care physician, or any other doctor, bring your medication list, and a list of questions. CONTACT YOUR PRIMARY CARE PROVIDER if you experience any of the following: Shortness of breath or difficulty breathing Fevers or chills Feeling tired with normal activity or experiencing dizziness or fainting Difficulty following your treatment plan, or difficulty taking medications Call urology if you experience: - difficulty or inability to urinate - worsening flank pain not controlled with medication CALL 911 OR GO TO THE EMERGENCY DEPARTMENT if you experience any of the following: Severe abdominal pain or nausea/vomiting Severe chest pain, or chest pain that radiates (moves) to your jaw or arm Sudden, severe shortness of breath or difficulty breathing Thank you for allowing us to participate in your care. Betzy Bee PA-C Supervising Physician Co-Signing Physician Notes PA Supervision Note: I did not personally see or examine the patient today, but I verified all luo points of AMY Bee's assessment and plan with the following exceptions/additions: None Total Time Total Time Spent Total Time Spent (In Minutes): Time spent day of discharge 45 minutes including direct patient care, medication reconciliation, documentation, review of labs and images, and coordination of care. Coding Level of Care Code 16546 INP/OBS DISCH >30 MIN Diagnoses Ureterolithiasis N20.1 UTI (urinary tract infection) N39.0 Benign enlargement of prostate N40.0 GERD (gastroesophageal reflux disease) K21.9 Hydronephrosis with obstructing calculus N13.2
--- NOTE | 2024-10-21 17:48 | Communication Note ---
Date of Service: October 21, 2024 Called [facility] to follow up on urine culture - via phone told normal dilia. PH to fax formal report, current do not have access to fax folder to confirm, but should on 10/21. If the fax has a different result will add addendum, otherwise no change to patient antibiotic plan.
== END 2024-10-20 15:43 | disposition home or self-care (01) | DRG 661 ==
LOC: 3N 18:42 → SUATTDRO 18:42 → INTOOBSV 18:58